=== PATIENT | female | born 1985 | race Caucasian/White ===

== ENCOUNTER 2020-12-07 06:40 | Inpatient (IN) | payer BC, SELFPAY ==
[2020-12-07] VITALS (78 sets, daily range): BP systolic 74–231; BP diastolic 40–170; PULSE 82–179; RESP 17; TEMP 36.6–36.9; O2SAT 99–100; BMI 32.8
--- NOTE | 2020-12-07 05:51 | PM.IMHP ---
H&P: HPI History of Present Illness Date/Time: 12/07/20 05:51 Chief Complaint: iol at term Narrative: Fiordaliza Ramos is a 35 year old female 3 para 2 whose last menstrual period was was 5 5 20, EDC is 12/12/2020, confirmed by 8 week ultrasound presents at 39 weeks gestation for induction of labor. She is positive for group B strep. 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 Her blood pressures are worsening and she is thus admitted for induction of labor. Group B strep prophylaxis will be undertaken Review of Systems Review of Systems: All systems reviewed & are unremarkable except as noted in HPI and below PMFSH Past Medical History Medical History Anxiety Family History Family History Grandparent Hypertension Heart disease Glaucoma Social History Social History Smoking status: Never smoker Alcohol intake: current Substance use: never Substance use type: does not use Gender identity (if verbalized by the patient): Female Spiritual care concerns: No Agree to blood products: No Meds Home Medications and Allergies Home Medications Medication Instructions Recorded Confirmed Type PNV cmb#95-ferrous fumarate-FA 1 tablet PO DAILY 11/18/20 11/18/20 History [] Allergies Allergy/AdvReac Type Severity Reaction Status Date / Time No Known Allergies Allergy Verified 09/23/20 16:21 Exam Const: General: no acute distress Eyes: General: appearance normal, both eyes and all related structures Neck: Neck: supple and no JVD Thyroid: thyroid normal Resp: Effort & Inspection: normal respiratory effort Auscultation: clear to auscultation bilaterally Cardio: Rate: regular rate Rhythm: regular rhythm GI: Inspection: non-distended GI Palp: Yes Soft to palpation, No Tenderness to palpation present (GI) and No Guarding due to palpation present (GI) Auscultation: normal bowel sounds : General: Yes bladder normal to palpation External Female Exam: normal external appearance Speculum Exam - Vagina: normal vaginal discharge and No vaginal bleeding Speculum Exam - Cervix: nontender Bimanual exam- vagina & uterus: bladder normal to palpation and No Cervical tenderness present OB/external & speculum: No vaginal bleeding Skin: General skin exam: no rashes or lesions noted Extrem: General: normal to inspection and no edema Psych: Mental Status: mental status grossly normal Affect: normal affect Assessment and Plan Additional Plan impression: Term with positive group B strep and mild gestational hypertension Plan: Medical induction of labor. Group B strep prophylaxis. Spontaneous vaginal delivery OB expected
[2020-12-07] MEDS: LACTATED RINGERS 1,000 ML 125 ML IV CONT ×2 (07:24→15:42)
[2020-12-07] MEDS: OXYTOCIN 30 UNITS/NS 500 ML 30 UNITS/500 ML BAG IV CONT (07:25)
[2020-12-07] MEDS: AMPICILLIN 2 GM/NS 100 ML 2 GM/100 ML BAG IVPB (07:25)
[2020-12-07 07:27] LABS: Basophils Percent Auto 0.3 % (0.2-1.2); Eosinophils Absolute Auto 0.1 K/mm3 (0-0.3); Eosinophils Percent Auto 0.6 % (0-4.4); Hemoglobin 13.6 g/dL (12.0-15.0); Immature Granulocyte Absolute 0.13 K/mm3 (0.00-0.031); Immature Granulocyte Percent A 1.1 % (0-0.5); Lymphocytes Percent Auto 19.6 % (18.3-44.2); Mean Corpuscular HGB Conc 34.9 g/dl (32-36); Mean Corpuscular Hemoglobin 31.9 pg (26-34); Mean Corpuscular Volume 91.5 fl (80-100); Mean Platelet Volume 9.9 fl (7.4-10.4); Monocytes Absolute Auto 0.6 K/mm3 (0.1-0.6); Monocytes Percent Auto 5.5 % (2.6-8.5); Neutrophils Absolute Auto 8.6 K/mm3 (1.3-6.7); Neutrophils Percent Auto 72.9 % (45.5-73.1); Platelet Count Result 261 k/mm3 (150-375); Red Blood Count 4.26 M/mm3 (4.2-5.4); Red Cell Distribution Width 12.3 % (11.5-14.5); White Blood Count 11.7 K/mm3 (4.5-10.0)
[2020-12-07 07:53] LABS: Alanine Aminotransferase 16 U/L (4-35); Albumin Level 3.4 g/dL (3.5-5.1); Alkaline Phosphatase 103 U/L (38-126); Anion Gap 6 mmol/L (8-16); Aspartate Amino Transferase 25 U/L (14-36); Bilirubin,Total 0.3 mg/dL (0.2-1.3); Blood Urea Nitrogen 10 mg/dL (7-17); Calcium 8.6 mg/dL (8.4-10.2); Carbon Dioxide 21 mmol/L (22-30); Chloride 108 mmol/L (98-107); Estimated CRCL calculation 168 ml/min; Estimated Glomerular Filt Rate > 60; Glucose 119 mg/dL (65-105); Potassium 3.7 mmol/L (3.4-5.0); Sodium 135 mmol/L (137-145)
--- NOTE | 2020-12-07 08:02 | WPDANESEPP ---
Anes - Eval Pre Procedure Procedure: labor epidural Date/Time: 12/07/20 08:02 Surgeon: yesenia harris Pre Op Diagnosis: Induction of Labor Patient Data Age: 35 Gender: F Height: 1.77 m Weight: 102.5 kg Last Vital Signs Pulse 97 12/07/20 08:01 BP 127/73 12/07/20 08:01 Allergies Allergy/AdvReac Type Severity Reaction Status Date / Time No Known Allergies Allergy Verified 09/23/20 16:21 Home Medications Medication Instructions Recorded Confirmed Type PNV cmb#95-ferrous fumarate-FA 1 tablet PO DAILY 11/18/20 11/18/20 History [] Laboratory Tests 12/07/20 12/07/20 12/07/20 07:10 07:10 07:10 WBC 11.7 K/mm3 H K/mm3 (4.5-10.0) RBC 4.26 M/mm3 M/mm3 (4.2-5.4) Hgb 13.6 g/dL g/dL (12.0-15.0) Hct 39.0 % % (37.0-47.0) MCV 91.5 fl fl (80-100) MCH 31.9 pg pg (26-34) MCHC 34.9 g/dl g/dl (32-36) RDW 12.3 % % (11.5-14.5) Plt Count 261 k/mm3 k/mm3 (150-375) MPV 9.9 fl fl (7.4-10.4) Immature Gran % (Auto) 1.1 % H % (0-0.5) Neut % (Auto) 72.9 % % (45.5-73.1) Lymph % (Auto) 19.6 % % (18.3-44.2) [place] % (Auto) 5.5 % % (2.6-8.5) Eos % (Auto) 0.6 % % (0-4.4) Baso % (Auto) 0.3 % % (0.2-1.2) Lymph # (Auto) 2.30 K/mm3 K/mm3 (0.9-3.2) [place] # (Auto) 0.6 K/mm3 K/mm3 (0.1-0.6) Eos # (Auto) 0.1 K/mm3 K/mm3 (0-0.3) Baso # (Auto) 0.0 K/mm3 K/mm3 (0.0-0.1) Abs Immat Gran (auto) 0.13 K/mm3 H K/mm3 (0.00-0.031) Absolute Neuts (auto) 8.6 K/mm3 H K/mm3 (1.3-6.7) Absolute Nucleated RBC 0.0 K/mm3 K/mm3 (0.0-0.012) Nucleated RBC % 0.0 % % (0.0-0.2) Sodium 135 mmol/L L mmol/L (137-145) Potassium 3.7 mmol/L mmol/L (3.4-5.0) Chloride 108 mmol/L H mmol/L (98-107) Carbon Dioxide 21 mmol/L L mmol/L (22-30) Anion Gap 6 mmol/L L mmol/L (8-16) BUN 10 mg/dL mg/dL (7-17) Creatinine 0.50 mg/dL L mg/dL (0.7-1.0) Estim Creat Clear Calc 168 ml/min ml/min Estimated GFR > 60 (59 - ) Glucose 119 mg/dL H mg/dL (65-105) Calcium 8.6 mg/dL mg/dL (8.4-10.2) Total Bilirubin 0.3 mg/dL mg/dL (0.2-1.3) AST 25 U/L U/L (14-36) ALT 16 U/L U/L (4-35) Alkaline Phosphatase 103 U/L U/L (38-126) Total Protein 6.0 g/dL L g/dL (6.3-8.2) Albumin 3.4 g/dL L g/dL (3.5-5.1) RPR Pending Patient hx anesthesia problems: none Family hx anesthesia problems: none [facility], [facility] Past Medical History Medical History Anxiety Family History Family History Grandparent Hypertension Heart disease Glaucoma Social History Social History Smoking status: Never smoker Alcohol intake: current Substance use: never Substance use type: does not use Gender identity (if verbalized by the patient): Female Spiritual care concerns: No Agree to blood products: No Exam Day of Procedure 12/07/20 08:02
[2020-12-07 08:30] LABS: Uric Acid 4.9 mg/dL (2.5-7.5)
--- NOTE | 2020-12-07 11:02 | P.PNOB_ITS ---
OB - PN: Subj Subjective Date/time seen: 12/07/20 11:02 last rn check 2.5 fhts reassuring bpand labs look good OB - PN: Obj Data Labs CBC & Chem 7: 12/07/20 07:10 12/07/20 07:10 Labs: Laboratory Results - last 24 hr 12/07/20 12/07/20 12/07/20 07:09 07:10 07:10 WBC 11.7 H RBC 4.26 Hgb 13.6 Hct 39.0 MCV 91.5 MCH 31.9 MCHC 34.9 RDW 12.3 Plt Count 261 MPV 9.9 Immature Gran % (Auto) 1.1 H Neut % (Auto) 72.9 Lymph % (Auto) 19.6 [place] % (Auto) 5.5 Eos % (Auto) 0.6 Baso % (Auto) 0.3 Lymph # (Auto) 2.30 [place] # (Auto) 0.6 Eos # (Auto) 0.1 Baso # (Auto) 0.0 Abs Immat Gran (auto) 0.13 H Absolute Neuts (auto) 8.6 H Absolute Nucleated RBC 0.0 Nucleated RBC % 0.0 Sodium Potassium Chloride Carbon Dioxide Anion Gap BUN Creatinine Estim Creat Clear Calc Estimated GFR Glucose Uric Acid 4.9 Calcium Total Bilirubin AST ALT Alkaline Phosphatase Total Protein Albumin Blood Type O Positive Antibody Screen Negative 12/07/20 07:10 WBC RBC Hgb Hct MCV MCH MCHC RDW Plt Count MPV Immature Gran % (Auto) Neut % (Auto) Lymph % (Auto) [place] % (Auto) Eos % (Auto) Baso % (Auto) Lymph # (Auto) [place] # (Auto) Eos # (Auto) Baso # (Auto) Abs Immat Gran (auto) Absolute Neuts (auto) Absolute Nucleated RBC Nucleated RBC % Sodium 135 L Potassium 3.7 Chloride 108 H Carbon Dioxide 21 L Anion Gap 6 L BUN 10 Creatinine 0.50 L Estim Creat Clear Calc 168 Estimated GFR > 60 Glucose 119 H Uric Acid Calcium 8.6 Total Bilirubin 0.3 AST 25 ALT 16 Alkaline Phosphatase 103 Total Protein 6.0 L Albumin 3.4 L Blood Type Antibody Screen OB - PN A/P Time Spent With Patient Time: Total time spent is greater than 50% in coordination of care (as documented) at patient's floor/unit and/or counseling patient:
[2020-12-07] MEDS: AMPICILLIN 1 GM/NS 50 ML 1 GM/50 ML BAG IVPB ×2 (11:16→15:26)
[2020-12-07] MEDS: OXYTOCIN 30 UNITS/NS 500 ML 30 UNITS/500 ML BAG 125 UNITS IV CONT (17:46)
--- NOTE | 2020-12-07 17:46 | P.PCNOB_ITS ---
OB - Delivery Note Procedure Delivery date: 12/07/20 Intrapartal events: None Induction method: AROM Delivery augmentation: pitocin Delivery monitor: external FHT Route of delivery: Episiotomy description: None Quantitative Blood Loss (ml): 158 Anesthesia type: Epidural Disposition: floor [place] Baby Date of : 12/07/20 Time of : 17:27 Weeks of gestation at delivery: 39 Infant gender: Female presentation: vertex position: Right Occiput Anterior Placenta delivery description: Spontaneous cord vessel description: 3 Vessels score one minute: 8 score five minutes: 9 Narrative: amp x 3 for gbs
[2020-12-07] MEDS: BENZOCAINE 20% AER SPR (*SP) 56 GM CAN 1 SPRAY TOPICAL (20:12)
[2020-12-07] MEDS: LANOLIN (LANSINOH) 7.5 GM CREAM 1 APPLIC TOPICAL (20:12)
[2020-12-07] MEDS: WITCH HAZEL 40 PADS 1 PAD TOPICAL (20:12)
--- NOTE | 2020-12-07 20:35 | OBPPTRN ---
Patient transferred to post room #284 via wheelchair with in crib. Support person present. Oriented to unit, room, information board, rooming in, admission packet and security measures. Patient verbalizes understanding.
[2020-12-07] MEDS: IBUPROFEN 600 MG TABLET PO (21:42)
--- NOTE | 2020-12-08 07:42 | PM.OBPNVD ---
OB - PN: Subj Subjective Date/time seen: 12/08/20 07:42 Patient comments: no complaints and pain well controlled baby status: doing well and nursing well OB - PN: Obj Data Labs CBC & Chem 7: 12/08/20 05:25 12/07/20 07:10 Labs: Laboratory Results - last 24 hr 12/07/20 12/07/20 12/07/20 07:09 07:10 07:10 Hgb Hct Sodium 135 L Potassium 3.7 Chloride 108 H Carbon Dioxide 21 L Anion Gap 6 L BUN 10 Creatinine 0.50 L Estim Creat Clear Calc 168 Estimated GFR > 60 Glucose 119 H Uric Acid 4.9 Calcium 8.6 Total Bilirubin 0.3 AST 25 ALT 16 Alkaline Phosphatase 103 Total Protein 6.0 L Albumin 3.4 L Blood Type O Positive Antibody Screen Negative 12/08/20 05:25 Hgb 12.0 Hct 34.0 L Sodium Potassium Chloride Carbon Dioxide Anion Gap BUN Creatinine Estim Creat Clear Calc Estimated GFR Glucose Uric Acid Calcium Total Bilirubin AST ALT Alkaline Phosphatase Total Protein Albumin Blood Type Antibody Screen OB - PN A/P Plan day: 1 Plan: routine care Time Spent With Patient Time: Total time spent is greater than 50% in coordination of care (as documented) at patient's floor/unit and/or counseling patient: Time with patient: less than 15 minutes Review of Systems Review of Systems: All systems reviewed & are unremarkable except as noted in HPI and below Exam Const: General: no acute distress Eyes: General: appearance normal, both eyes and all related structures Neck: Neck: supple and no JVD Thyroid: thyroid normal Resp: Effort & Inspection: normal respiratory effort Auscultation: clear to auscultation bilaterally Cardio: Rate: regular rate Rhythm: regular rhythm GI: Inspection: non-distended GI Palp: Yes Soft to palpation, No Tenderness to palpation present (GI) and No Guarding due to palpation present (GI) Auscultation: normal bowel sounds : General: Yes bladder normal to palpation External Female Exam: normal external appearance Speculum Exam - Vagina: normal vaginal discharge and No vaginal bleeding Speculum Exam - Cervix: nontender Bimanual exam- vagina & uterus: bladder normal to palpation and No Cervical tenderness present OB/external & speculum: No vaginal bleeding Skin: General skin exam: no rashes or lesions noted Extrem: General: normal to inspection and no edema Psych: Mental Status: mental status grossly normal Affect: normal affect
--- NOTE | 2020-12-08 07:42 | WPDANLDPN2 ---
Anes-Prog Note L&D Date/Time: 12/08/20 07:42 Comfortable throughout: labor and delivery Neuraxial method: epidural Epidural/Spinal procedure site: clean & non-tender Neuro status: Neuro function grossly intact. Cardiovascular status: normal Respiratory status: normal Airway patency: baseline Mental status: baseline Post-Op hydration status: normal Vital Signs: Last Vital Signs Temp 36.8 C 12/07/20 21:00 Pulse 91 12/07/20 21:00 Resp 17 12/07/20 21:00 BP 137/90 12/07/20 21:00 Pulse Ox 100 12/07/20 17:25 Pain score (VAS): 3 I/O: Intake & Output 12/07/20 12/07/20 12/08/20 15:59 23:59 07:59 Intake Total 1050 Output Total 60 Balance 1050 -60 Post-procedural complaints: none Patient feedback: Patient satisfied with anesthetic care.
[2020-12-08] MEDS: WITCH HAZEL 40 PADS 1 PAD TOPICAL (07:54)
[2020-12-08] MEDS: BENZOCAINE 20% AER SPR (*SP) 56 GM CAN 1 SPRAY TOPICAL (07:54)
[2020-12-08] MEDS: DOCUSATE SODIUM 100 MG CAPSULE PO ×2 (07:55→15:59)
[2020-12-08] MEDS: MULTIVIT/MIN/PREN/FOL AC/IRON TABLET 1 TAB PO (07:56)
[2020-12-08] MEDS: IBUPROFEN 600 MG TABLET PO ×2 (07:56→15:58)
[2020-12-08 08:35] VITALS: BP 133/90; PULSE 96; RESP 16; TEMP 37.2; O2SAT 99
[2020-12-08 11:02] LABS: Rapid Plasma Reagin Non-Reactive (NonReactive)
[2020-12-08 20:00] VITALS: BP 120/69; PULSE 85; RESP 19; TEMP 36.7
[2020-12-09 07:25] VITALS: BP 120/80; PULSE 81; RESP 14; TEMP 36.3; O2SAT 98
[2020-12-09] MEDS: DOCUSATE SODIUM 100 MG CAPSULE PO (07:30)
[2020-12-09] MEDS: MULTIVIT/MIN/PREN/FOL AC/IRON TABLET 1 TAB PO (07:30)
[2020-12-09] MEDS: IBUPROFEN 600 MG TABLET PO (07:31)
--- NOTE | 2020-12-09 07:41 | PM.DS ---
DS: Admitting Diagnosis Admitting Diagnosis Admitting Diagnosis: term iup mild gest htn DS: Summary Hospital Course Hospital Course: see dictation Time Spent with Patient Time attestation: Total time spent providing and/or coordinating discharge services: The patient was admitted for induction of labor at term secondary to mildly elevated blood pressures. Her H labs were normal. Her blood pressures remained stable throughout her stay. She underwent spontaneous vaginal delivery and was treated for group B strep prophylactically. Her hospital course was unremarkable. She remained afebrile. She was up, voiding without difficulty, breast-feeding, ambulating, passing gas, and generally without complaints. Exam Const: General: no acute distress Eyes: General: appearance normal, both eyes and all related structures Neck: Neck: supple and no JVD Thyroid: thyroid normal Resp: Effort & Inspection: normal respiratory effort Auscultation: clear to auscultation bilaterally Cardio: Rate: regular rate Rhythm: regular rhythm GI: Inspection: non-distended GI Palp: Yes Soft to palpation, No Tenderness to palpation present (GI) and No Guarding due to palpation present (GI) Auscultation: normal bowel sounds : General: Yes bladder normal to palpation External Female Exam: normal external appearance Speculum Exam - Vagina: normal vaginal discharge and No vaginal bleeding Speculum Exam - Cervix: nontender Bimanual exam- vagina & uterus: bladder normal to palpation and No Cervical tenderness present OB/external & speculum: No vaginal bleeding Skin: General skin exam: no rashes or lesions noted Extrem: General: normal to inspection and no edema Psych: Mental Status: mental status grossly normal Affect: normal affect DS: Data Data Completed and Pending Labs on day of discharge: Labs from last 24 hours 12/07/20 07:10 RPR Non-reactive Discharge Plan Discharge Attending physician on discharge: Noe Yang Discharging Clinician: Noe Yang Patient Disposition: Home, Self-Care Activity: may shower, no straining and pelvic rest Diet: heart healthy Wound Care Instructions: follow printed instructions Patient Instructions: Antibiotic Form Stand Alone Forms: General Discharge Information Follow-up/Referrals: Noe Yang MD [Physician] - Discharge Medications: Continued PNV cmb#95-ferrous fumarate-FA [] 28 mg iron- 800 mcg Tablet 1 tablet PO DAILY RF: 0 Date of admission: 12/07/20 06:40 Primary Care Provider: Ida Mike Admitting Provider: Noe Yang Attending physician on admission: Noe Yang Condition: Stable
--- NOTE | 2020-12-09 07:45 | PM.OBPNVD ---
OB - PN: Subj Subjective Date/time seen: 12/09/20 07:45 Patient comments: no complaints and pain well controlled baby status: doing well and nursing well OB - PN: Obj Data Labs CBC & Chem 7: 12/08/20 05:25 12/07/20 07:10 Labs: Laboratory Results - last 24 hr 12/07/20 07:10 RPR Non-reactive OB - PN A/P Plan day: 2 Plan: routine care, discharge home and follow up 6 weeks Time Spent With Patient Time: Total time spent is greater than 50% in coordination of care (as documented) at patient's floor/unit and/or counseling patient: Time with patient: less than 15 minutes Review of Systems Review of Systems: All systems reviewed & are unremarkable except as noted in HPI and below Exam Const: General: no acute distress Eyes: General: appearance normal, both eyes and all related structures Neck: Neck: supple and no JVD Thyroid: thyroid normal Resp: Effort & Inspection: normal respiratory effort Auscultation: clear to auscultation bilaterally Cardio: Rate: regular rate Rhythm: regular rhythm GI: Inspection: non-distended GI Palp: Yes Soft to palpation, No Tenderness to palpation present (GI) and No Guarding due to palpation present (GI) Auscultation: normal bowel sounds : General: Yes bladder normal to palpation External Female Exam: normal external appearance Speculum Exam - Vagina: normal vaginal discharge and No vaginal bleeding Speculum Exam - Cervix: nontender Bimanual exam- vagina & uterus: bladder normal to palpation and No Cervical tenderness present OB/external & speculum: No vaginal bleeding Skin: General skin exam: no rashes or lesions noted Extrem: General: normal to inspection and no edema Psych: Mental Status: mental status grossly normal Affect: normal affect
--- NOTE | 2020-12-09 10:29 | PC.NURSE ---
Mother verbalizes she is able to independently latch with appropriate positioning/alignment. She states she has minimal nipple discomfort, is feeding as required and waking to feed if needed. Infant has had 10 effective feedings in the past 24 hours, and is currently meeting outcomes for weight, output, jaundice and feeding frequencies. Mother states she feels confident to continue effective at home. Reviewed transition to breast milk, signs of adequate intake, and engorgement/relief. Instructed to call ICP if intake/output less than required. Reviewed community resources on the [facility] website and in the Mom/Baby guide. Information on outpatient services provided. Mother has no further questions at this time.
[2020-12-10 08:46] VITALS: BP 117/76; PULSE 80; RESP 20; TEMP 36.7; O2SAT 100
== END 2020-12-09 14:19 | disposition home or self-care (01) | DRG 807 ==
LOC: ANHLDR 06:44 → ANHOB2 22:08
PROVIDERS: Admitting Provider Obstetrics & Gynecology; PCP Family Medicine; Visit Provider Obstetrics & Gynecology
DX: O99.824 Streptococcus B carrier state complicating childbirth (principal); Z37.0 Single live birth; O13.4 Gestational [pregnancy-induced] hypertension without significant proteinuria, complicating childbirth; Z3A.39 39 weeks gestation of pregnancy
CPT/HCPCS: 36415; 80053; 84550; 85014; 85018; 85025; 86592; 86850; 86900; 86901; A9270; J0290; J2590; J2795; J7120

== ENCOUNTER 2020-12-24 13:55 | Outpatient (RCR) | payer BC, SELFPAY ==
--- NOTE | 2020-12-24 16:45 | PC.NURSE ---
1426mother used football position; baby required much stimulation to get her to open her mouth to latch; once on, latch appeared appropriate, and assisted mother to get deeper on the breast. Mother reported that she could feel the difference. Reviewed alignment, use of c-hold and [id number] latch on technique. Baby seemed to hold nipple in her mouth. With stimulation she would give short little bursts of sucks. Nurse had mother try a nipple shield to see if baby would suck more vigorously, but it did not change baby's feeding efforts. there was however, colostrum in the nipple shield, after baby nursed with the shield. Mother will not continue to use it. Baby switched to second side, and the feeding seemed to be the same, no change in how vigorously would suck. After 30 minutes at the breast, nurse attempted to feed the bottle of pumped breast milk mother had with her. Baby fought sucking with the bottle for the nurse, but mother was able to get her to suck a little. Then suddenly, infant spit up large amount of colostrum. Feeding was stopped. Baby weighed after the breast feeding, before the attempt to bottle feed; see notes. [ End ] consult visit by request of Dr Rogers. Baby weighed pre feeding - [phone] gms post breast feeding - 8-13.5 [id number] Baby did not demonstrate vigorous rhythmic sucking at the breast; she gave what appeared to be short burst of sucks, and required regular stimulation to get that. when baby on scale, she was awake, moving, crying and good muscle tone. At the breast, baby calm, seemingly sleepy, and very relaxed muscle tone. Baby would suck nurses gloved finger vigorously, but did not demonstrate that at the breast or with the bottle. Mother states she is doing some pumping, and this morning pumped instead of breast feeding and got 3 ounces, and baby took 2.5 of that but the feeding took a very long time, sometimes up to an hour. she reports last week, she was getting 8 ounces with pumping. Mother states they have done some dropper feedings, per recommendation of . Mother seemed very anxious initially, and calmed during the visit. She reports stressful feedings, and worrying about her baby, but also has 3 and 5yo at home, and starting a new job. Phone call to Dr. Rogers to report all of the above. Feeding plan for now, Mother is to pump and bottle feed only. Give baby all the breast milk she wants, and has available, then using Similac Neosure, 22cal. formula. Mother was given formula samples to take home. She is to feed q3 hours. Per Dr. Rogers, mother has referral for her baby to be seen by OT and ENT. Mother emotional at the end of the visit. Nurse encouraged her to reach out to family and/or friends for some extra help through the weekend, so that possibly she can get a little more rest. She agreed. Mother verbalized understanding of all information shared.
== END 2021-01-22 08:11 | disposition home or self-care (01) ==
LOC: ANHOBOP 13:55
PROVIDERS: PCP Family Medicine; Visit Provider Pediatrics
DX: Z39.1 Encounter for care and examination of lactating mother (principal)
CPT/HCPCS: 99203; G0463